=== PATIENT | female | born 1975 | race Caucasian/White ===

== ENCOUNTER 2018-01-31 23:06 | Emergency (ER) | payer BC, OTHER ==
--- NOTE | 2018-01-31 23:42 | EDM.PDOC ---
ED HPI GENERAL MEDICAL PROBLEM - General Chief Complaint: Lower Extremity Injury/Pain Stated Complaint: FEET SWOLLEN Time Seen by Provider: 01/31/18 23:42 Source of Information: Reports: Patient History Limitations: Reports: No Limitations - History of Present Illness INITIAL COMMENTS - FREE TEXT/NARRATIVE: HISTORY AND PHYSICAL: History of present illness: 42-year-old female presenting emergency department with chief complaint of one week of worsening bilateral lower leg edema and pain. Patient states that for the past year she has been noticing that she is getting swelling in her legs. This usually dissipates at night when she puts her legs up however over the past week the swelling is increased dramatically and is very painful. Pain and swelling is bilaterally. She did recently travel. She denies any hemoptysis or shortness of breath. She denies any orthopnea, paroxysmal nocturnal dyspnea, or shortness of breath with walking. She has been taking prophylactically with 5 mg which was prescribed to her in January for swelling in her legs. It does not seem to be helping at this point. She currently denies any chest pain, palpitations, shortness of breath, syncopal episodes, or focal neurologic deficits. On physical exam he is tender to palpation bilateral lower legs. There is +1 pedal edema up to the knees bilaterally. Review of systems: As per history of present illness and below otherwise all systems reviewed and negative. Past medical history: As per history of present illness and as reviewed below otherwise noncontributory. Surgical history: As per history of present illness and as reviewed below otherwise noncontributory. Social history: No reported history of drug or alcohol abuse. Family history: As per history of present illness and as reviewed below otherwise noncontributory. Physical exam: HEENT: Atraumatic, normocephalic, pupils reactive, negative for conjunctival pallor or scleral icterus, mucous membranes moist, throat clear, neck supple, nontender, trachea midline. Lungs: Clear to auscultation, breath sounds equal bilaterally, chest nontender. Heart: S1S2, regular, negative for clicks, rubs, or JVD. Abdomen: Soft, nondistended, nontender. Negative for masses or hepatosplenomegaly. Negative for costovertebral tenderness. Pelvis: Stable nontender. Genitourinary: Deferred. Rectal: Deferred. Extremities: Atraumatic, see above, tender palpation and +1 pedal edema up to the knees.. Neurovascular unremarkable. Neuro: Awake, alert, oriented. Cranial nerves II through XII unremarkable. Cerebellum unremarkable. Motor and sensory unremarkable throughout. Exam nonfocal. Diagnostics: CBC, CMP, troponin, d-dimer, UA, UC, venous Doppler, chest x-ray, CTA chest. Therapeutics: 40 mg Lasix IV 1, Impression: Venous insufficiency Bilateral lower leg edema Acute cystitis Plan: D-dimer was mildly positive so we did do a CTA which showed no evidence of a pulmonary embolism. Venous Doppler was also negative for blood clots. Urinalysis was positive for an acute cystitis. Her bilateral leg swelling is most likely secondary to venous insufficiency however patient does mention that she's had episodes of rapid heart rate, palpitations, which should be further investigated. I did give the patient a prescription for Lasix 40 mg by mouth daily for 3 days. She may need LAMONT hose compression stockings to help with her venous insufficiency which she most likely has. I also gave the patient ciprofloxacin for her acute cystitis. She is going to follow-up with her primary care provider and return the emergency department if she has any new or worsening symptoms. Definitive disposition and diagnosis as appropriate pending reevaluation and review of above. bilateral legs Pain Score (Numeric/FACES): 10 - Related Data Allergies Allergy/AdvReac Type Severity Reaction Status Date / Time tramadol Allergy Rash Verified 01/31/18 23:23 Home Meds: Home Meds Cyclobenzaprine [Flexeril] 5 mg PO TID PRN 02/01/18 [History] Indomethacin 50 mg PO TID PRN 02/01/18 [History] Spironolactone [Aldactone] 25 mg PO DAILY 02/01/18 [History] Vilazodone Hydrochloride [Viibryd] 20 mg PO QAM 02/01/18 [History] Past Medical History HEENT History: Reports: Other (See Below) Other HEENT History: wears glasses Cardiovascular History: Reports: Hypertension Other [employer] History: breast augmentation Psychiatric History: Reports: Depression - Infectious Disease History Infectious Disease History: Reports: Chicken Pox - Past Surgical History HEENT Surgical History: Reports: None Cardiovascular Surgical History: Reports: None Social & Family History - Family History Family Medical History: Noncontributory - Tobacco Use Smoking Status *Q: Current Every Day Smoker Years of Tobacco use: 25 Packs/Tins Daily: 0.5 - Caffeine Use Caffeine Use: Reports: Coffee - Recreational Drug Use Recreational Drug Use: No Review of Systems - Review of Systems Review Of Systems: ROS reveals no pertinent complaints other than HPI. ED EXAM, GENERAL - Physical Exam Exam: See Below Course - Vital Signs Last Recorded V/S: Last Vital Signs Temp 97.7 F 02/01/18 03:18 Pulse 84 02/01/18 03:18 Resp 18 02/01/18 03:18 BP 114/83 02/01/18 03:18 Pulse Ox 98 02/01/18 03:18 - Orders/Labs/Meds Orders: Active Orders 24 hr Category Date Time Status Cardiac Monitoring [RC] . DIRECTED Care 01/31/18 23:54 Active EKG Documentation Completion [RC] STAT Care 01/31/18 23:54 Active Oxygen Therapy [RC] ASDIRECTED Care 01/31/18 23:54 Active Pulse Oximetry [RC] ASDIRECTED Care 01/31/18 23:54 Active Ang Chest [CT] Stat Exams 02/01/18 01:26 Taken Chest 1V Frontal [CR] Stat Exams 01/31/18 23:54 Taken Venous Doppler Lwr Ext Bi [US] Stat Exams 02/01/18 23:56 Taken UA W/MICROSCOPIC [URIN] Stat Lab 02/01/18 00:21 Ordered Sodium Chloride 0.9% [Saline Flush] Med 01/31/18 23:54 Active 10 ml FLUSH ASDIRECTED PRN Sodium Chloride 0.9% [Saline Flush] Med 01/31/18 23:54 Active 2.5 ml FLUSH ASDIRECTED PRN Sodium Chloride 0.9% [Saline Flush] Med 01/31/18 23:54 Active 2.5 ml FLUSH ASDIRECTED PRN Saline Lock Insert [OM.PC] Stat Oth 01/31/18 23:54 Ordered Medication Orders Sodium Chloride (Saline Flush) 2.5 ml FLUSH ASDIRECTED PRN PRN Reason: Keep Vein Open Sodium Chloride (Saline Flush) 10 ml FLUSH ASDIRECTED PRN PRN Reason: Keep Vein Open Sodium Chloride (Saline Flush) 2.5 ml FLUSH ASDIRECTED PRN PRN Reason: Keep Vein Open Labs: Laboratory Tests 02/01/18 02/01/18 02/01/18 Range/Units 00:06 00:06 00:06 WBC 7.21 (4.0-11.0) K/uL RBC 4.11 L (4.30-5.90) M/uL Hgb 13.5 (12.0-16.0) g/dL Hct 39.2 (36.0-46.0) % MCV 95.4 (80.0-98.0) fL MCH 32.8 H (27.0-32.0) pg MCHC 34.4 (31.0-37.0) g/dL RDW Std Deviation 44.1 (28.0-62.0) fl RDW Coeff of Sheri 13 (11.0-15.0) % Plt Count 200 (150-400) K/uL MPV 9.60 (7.40-12.00) fL Neut % (Auto) 61.8 (48.0-80.0) % Lymph % (Auto) 31.1 (16.0-40.0) % [place] % (Auto) 5.0 (0.0-15.0) % Eos % (Auto) 1.8 (0.0-7.0) % Baso % (Auto) 0.3 (0.0-1.5) % Neut # (Auto) 4.5 (1.4-5.7) K/uL Lymph # (Auto) 2.2 (0.6-2.4) K/uL [place] # (Auto) 0.4 (0.0-0.8) K/uL Eos # (Auto) 0.1 (0.0-0.7) K/uL Baso # (Auto) 0.0 (0.0-0.1) K/uL Nucleated RBC % 0.0 /100WBC Nucleated RBCs # 0 K/uL INR 1.06 D-Dimer, Quantitative 0.66 H (0.0-0.52) mg/LFEU Sodium 140 (136-145) mmol/L Potassium 4.0 (3.5-5.1) mmol/L Chloride 104 (98-107) mmol/L Carbon Dioxide 30.9 (21.0-32.0) mmol/L BUN 19 H (7.0-18.0) mg/dL Creatinine 1.0 (0.6-1.0) mg/dL Est Cr Clr Drug Dosing 61.86 mL/min Estimated GFR (MDRD) > 60.0 ml/min Glucose 106 (74-106) mg/dL Calcium 8.6 (8.5-10.1) mg/dL Total Bilirubin 0.2 (0.2-1.0) mg/dL AST 44 H (15-37) IU/L ALT 75 H (14-63) IU/L Alkaline Phosphatase 56 (46-116) U/L Troponin I < 0.050 (0.000-0.056) ng/mL Total Protein 6.6 (6.4-8.2) g/dL Albumin 3.4 (3.4-5.0) g/dL Globulin 3.2 (2.0-3.5) g/dL Albumin/Globulin Ratio 1.1 L (1.3-2.8) Urine Color Urine Appearance Urine pH (5.0-8.0) Ur Specific Beaver (1.001-1.035) Urine Protein (NEGATIVE) mg/dL Urine Glucose (UA) (NEGATIVE) mg/dL Urine Ketones (NEGATIVE) mg/dL Urine Occult Blood (NEGATIVE) Urine Nitrite (NEGATIVE) Urine Bilirubin (NEGATIVE) Urine Urobilinogen (<2.0) EU/dL Ur Leukocyte Esterase (NEGATIVE) Urine RBC (0-2/HPF) Urine WBC (0-5/HPF) Ur Epithelial Cells (NONE-FEW) Urine Bacteria (NEGATIVE) 02/01/18 Range/Units 00:21 WBC (4.0-11.0) K/uL RBC (4.30-5.90) M/uL Hgb (12.0-16.0) g/dL Hct (36.0-46.0) % MCV (80.0-98.0) fL MCH (27.0-32.0) pg MCHC (31.0-37.0) g/dL RDW Std Deviation (28.0-62.0) fl RDW Coeff of Sheri (11.0-15.0) % Plt Count (150-400) K/uL MPV (7.40-12.00) fL Neut % (Auto) (48.0-80.0) % Lymph % (Auto) (16.0-40.0) % [place] % (Auto) (0.0-15.0) % Eos % (Auto) (0.0-7.0) % Baso % (Auto) (0.0-1.5) % Neut # (Auto) (1.4-5.7) K/uL Lymph # (Auto) (0.6-2.4) K/uL [place] # (Auto) (0.0-0.8) K/uL Eos # (Auto) (0.0-0.7) K/uL Baso # (Auto) (0.0-0.1) K/uL Nucleated RBC % /100WBC Nucleated RBCs # K/uL INR D-Dimer, Quantitative (0.0-0.52) mg/LFEU Sodium (136-145) mmol/L Potassium (3.5-5.1) mmol/L Chloride (98-107) mmol/L Carbon Dioxide (21.0-32.0) mmol/L BUN (7.0-18.0) mg/dL Creatinine (0.6-1.0) mg/dL Est Cr Clr Drug Dosing mL/min Estimated GFR (MDRD) ml/min Glucose (74-106) mg/dL Calcium (8.5-10.1) mg/dL Total Bilirubin (0.2-1.0) mg/dL AST (15-37) IU/L ALT (14-63) IU/L Alkaline Phosphatase (46-116) U/L Troponin I (0.000-0.056) ng/mL Total Protein (6.4-8.2) g/dL Albumin (3.4-5.0) g/dL Globulin (2.0-3.5) g/dL Albumin/Globulin Ratio (1.3-2.8) Urine Color YELLOW Urine Appearance CLOUDY Urine pH 6.0 (5.0-8.0) Ur Specific Beaver >= 1.030 (1.001-1.035) Urine Protein 30 (NEGATIVE) mg/dL Urine Glucose (UA) NEGATIVE (NEGATIVE) mg/dL Urine Ketones NEGATIVE (NEGATIVE) mg/dL Urine Occult Blood LARGE H (NEGATIVE) Urine Nitrite POSITIVE H (NEGATIVE) Urine Bilirubin NEGATIVE (NEGATIVE) Urine Urobilinogen 4.0 H (<2.0) EU/dL Ur Leukocyte Esterase SMALL (NEGATIVE) Urine RBC 55-60 (0-2/HPF) Urine WBC 40-55 (0-5/HPF) Ur Epithelial Cells FEW (NONE-FEW) Urine Bacteria 2+ H (NEGATIVE) Meds: Medications Generic Name Dose Route Start Last Admin Trade Name Freq PRN Reason Stop Dose Admin Sodium Chloride 2.5 ml 01/31/18 23:54 Saline Flush FLUSH ASDIRECTED PRN Keep Vein Open Sodium Chloride 10 ml 01/31/18 23:54 Saline Flush FLUSH ASDIRECTED PRN Keep Vein Open Sodium Chloride 2.5 ml 01/31/18 23:54 Saline Flush FLUSH ASDIRECTED PRN Keep Vein Open Discontinued Medications Generic Name Dose Route Start Last Admin Trade Name Freq PRN Reason Stop Dose Admin Furosemide 40 mg 02/01/18 01:26 02/01/18 01:36 Lasix IVPUSH 02/01/18 01:27 40 mg NOW ONE Administration Iopamidol 100 ml 02/01/18 02:12 02/01/18 02:18 Isovue-370 (76%) IVPUSH 02/01/18 02:13 100 ml ONETIME STA Administration Departure - Departure Time of Disposition: 03:43 Disposition: Home, Self-Care 01 Condition: Good Clinical Impression: Venous insufficiency of both lower extremities Acute cystitis Qualifiers: Hematuria presence: without hematuria Qualified Code(s): N30.00 - Acute cystitis without hematuria - Discharge Information Referrals: Echo Mathew NP [Primary Care Provider] - Forms: ED Department Discharge Additional Instructions: My general discharge The following information is given to patients seen in the emergency department who are being discharged to home. This information is to outline your options for follow-up care. We provide all patients seen in our emergency department with a follow-up referral. The need for follow-up, as well as the timing and circumstances, are variable depending upon the specifics of your emergency department visit. If you don't have a primary care physician on staff, we will provide you with a referral. We always advise you to contact your personal physician following an emergency department visit to inform them of the circumstance of the visit and for follow-up with them and/or the need for any referrals to a consulting specialist. The emergency department will also refer you to a specialist when appropriate. This referral assures that you have the opportunity for follow-up care with a specialist. All of these measure are taken in an effort to provide you with optimal care, which includes your follow-up. Under all circumstances we always encourage you to contact your private physician who remains a resource for coordinating your care. When calling for follow-up care, please make the office aware that this follow-up is from your recent emergency room visit. If for any reason you are refused follow-up, please contact the [facility] Emergency Department at and asked to speak to the emergency department charge nurse. [address] [address] Follow-up with your primary care provider as we discussed as soon as possible. Be sure to tell them that you were in the emergency department and they wish that you are followed up with as soon as possible. Would recommend possible cardiology consult for your palpitations that you had at nighttime. May consider compression stockings for suspected venous insufficiency. Take antibiotic as prescribed for your urinary tract infection. Take Lasix 40 mg by mouth daily for 3 days to help with swelling in your legs. Return emergency department if any new or worsening symptoms. - My Orders Last 24 Hours: My Active Orders 01/31/18 23:54 Cardiac Monitoring [RC] . DIRECTED EKG Documentation Completion [RC] STAT Oxygen Therapy [RC] ASDIRECTED Pulse Oximetry [RC] ASDIRECTED Chest 1V Frontal [CR] Stat Sodium Chloride 0.9% [Saline Flush] 10 ml FLUSH ASDIRECTED PRN Sodium Chloride 0.9% [Saline Flush] 2.5 ml FLUSH ASDIRECTED PRN Sodium Chloride 0.9% [Saline Flush] 2.5 ml FLUSH ASDIRECTED PRN Saline Lock Insert [OM.PC] Stat 02/01/18 00:21 UA W/MICROSCOPIC [URIN] Stat 02/01/18 01:26 Ang Chest [CT] Stat 02/01/18 23:56 Venous Doppler Lwr Ext Bi [US] Stat - Assessment/Plan Last 24 Hours: My Active Orders 01/31/18 23:54 Cardiac Monitoring [RC] . DIRECTED EKG Documentation Completion [RC] STAT Oxygen Therapy [RC] ASDIRECTED Pulse Oximetry [RC] ASDIRECTED Chest 1V Frontal [CR] Stat Sodium Chloride 0.9% [Saline Flush] 10 ml FLUSH ASDIRECTED PRN Sodium Chloride 0.9% [Saline Flush] 2.5 ml FLUSH ASDIRECTED PRN Sodium Chloride 0.9% [Saline Flush] 2.5 ml FLUSH ASDIRECTED PRN Saline Lock Insert [OM.PC] Stat 02/01/18 00:21 UA W/MICROSCOPIC [URIN] Stat 02/01/18 01:26 Ang Chest [CT] Stat 02/01/18 23:56 Venous Doppler Lwr Ext Bi [US] Stat
[2018-01-31] MEDS ORDERED: Sodium Chloride 0.9% 2.5 ML Syringe FLUSH PRN ×2 (23:54)
[2018-01-31] MEDS ORDERED: Sodium Chloride 0.9% 10 ML Syringe FLUSH PRN (23:54)
[2018-02-01 00:49] LABS: CHLORIDE,CL 104 mmol/L (98-107); SODIUM,NA 140 mmol/L (136-145)
[2018-02-01] MEDS ORDERED: Furosemide 40 MG/4 ML VIAL IVPUSH ONE (01:26)
[2018-02-01] MEDS ORDERED: Iopamidol 755 Mg/ML 100 ML Bottle IVPUSH STA (02:12)
--- NOTE | 2018-02-03 09:40 | CR ---
EXAM DATE: 01/31/18 PATIENT'S AGE: 42 Patient: [facility] Facility: [place], [place] Site . Site : 1975 Study: XRay Chest [id number]/21/2018 12:23:17 AM Ordering Physician: Fabio Weller Final Report: INDICATION: Shortness of breath, patient states bilateral lower leg swelling TECHNIQUE: Chest radiograph 1 view COMPARISON: None FINDINGS: Mediastinum: The mediastinum is normal in appearance. The heart silhouette is normal in size and morphology. Lungs: Both lungs are unremarkable in appearance. No sign of pleural effusion seen. No pneumothorax is identified. Bones and soft tissue: Unremarkable for age. IMPRESSION: 1. No acute cardiopulmonary disease is seen. Dictated by: Solis Camacho MD @ 02/01/2018 00:28:19 (Electronic Signature) Report Signed by Proxy. [facility]ENTERShannan
--- NOTE | 2018-02-03 09:46 | CT ---
EXAM DATE: 01/31/18 PATIENT'S AGE: 42 Patient: [facility] Facility: [place], [place] Site . Site : 1975 Study: CT Chest Angio [id number]/[id number]/2018 2:22:18 AM Ordering Physician: Fabio Weller Final Report: HISTORY: Chest pain, shortness of breath. Bilateral lower extremity swelling. Elevated D- dimer. TECHNIQUE: CT chest with IV contrast, pulmonary embolism protocol. COMPARISON: None. FINDINGS: Pulmonary arteries: No pulmonary embolism. Main pulmonary artery is normal caliber. Lungs: Central airways are patent. No consolidation. Small subpleural blebs in the lung apices. Few small ground-glass opacities in the left upper lobe and perihilar right lower lobe. No focal consolidation. No pleural effusion or pneumothorax. Mediastinum: Thoracic aorta is normal caliber. No pericardial effusion. Ill- defined fatty interspersed tissue in the anterior mediastinum compatible with residual thymic tissue. Lymph nodes: No enlarged thoracic lymph nodes. Musculoskeletal and chest wall: Bilateral breast implants. Mild degenerative changes of the thoracic spine. Upper abdomen: Unremarkable. IMPRESSION: 1. No pulmonary embolism. 2. Few scattered ground-glass opacities in both lungs are likely infectious or inflammatory. Please note that all CT scans at this facility use dose modulation, iterative reconstruction, and/or weight-based dosing when appropriate to reduce radiation dose to as low as reasonably achievable. Dictated by Dayron Perea MD @ Feb 01 2018 3:03AM (Electronic Signature) Report Signed by Proxy. [facility]Shannan
--- NOTE | 2018-02-03 15:28 | US ---
EXAM DATE: 01/31/18 PATIENT'S AGE: 42 Patient: [facility] Facility: [facility], [place], [place] : 1975 Study: US Extremity Bilateral [id number]/[id number] 1:02:23 AM Ordering Physician: Fabio Weller Final Report: INDICATION: leg pain TECHNIQUE: Bilateral lower extremity venous duplex ultrasound was performed using francis-scale ultrasound with and without compression and augmentation. Color Doppler and spectral Doppler exam of the lower extremity veins were obtained. COMPARISON: None FINDINGS: Deep veins: The bilateral common femoral, deep femoral, superficial femoral, popliteal, and visualized calf veins are fully compressible and normal response to mechanical augmentation. The Duplex Doppler waveforms are normal in appearance. Superficial veins: The visualized greater saphenous and superficial veins of the leg and calf are unremarkable. Soft tissues: No masses or cysts evident. No adenopathy is seen. IMPRESSION: 1. No sonographic evidence of deep venous thrombosis seen in either lower extremities. Dictated by: Solis Camacho MD @ 02/01/2018 01:08:26 Signed by: Solis Camacho MD @ 02/01/2018 1:08:26 AM (Electronic Signature) (Electronic Signature) Report Signed by Proxy. [facility]
== END 2018-02-01 04:00 | disposition home or self-care (01) ==
LOC: MW.ED 23:06
DX: I87.2 Venous insufficiency (chronic) (peripheral) (principal); N30.00 Acute cystitis without hematuria; R60.9 Edema, unspecified; I10 Essential (primary) hypertension; F17.210 Nicotine dependence, cigarettes, uncomplicated; Z88.6 Allergy status to analgesic agent; Z79.899 Other long term (current) drug therapy
CPT/HCPCS: 36415; 71045; 71275; 80053; 81001; 84484; 85025; 85379; 85610; 93005; 93970; 96374; 99284; J1940; Q9967

== ENCOUNTER 2019-06-05 18:28 | Emergency (ER) | payer OTHER ==
[2019-06-05] MEDS ORDERED: Sodium Chloride 0.9% 2.5 ML Syringe FLUSH PRN (18:30)
[2019-06-05] MEDS ORDERED: Sodium Chloride 0.9% 10 ML Syringe FLUSH PRN (18:30)
--- NOTE | 2019-06-05 18:48 | EDM.PDOC ---
ED HPI GENERAL MEDICAL PROBLEM - General Chief Complaint: Chest Pain Stated Complaint: CHEST PAIN Time Seen by Provider: 06/05/19 18:41 Source of Information: Reports: Patient History Limitations: Reports: No Limitations - History of Present Illness INITIAL COMMENTS - FREE TEXT/NARRATIVE: HISTORY AND PHYSICAL: History of present illness: Patient is a 44-year-old female presents to the ED with complaint of palpitations and chest pain. She states for the past week she gets a flipping sensation in her chest and feels short of breath when this occurs. She reports chest pain on and off today. She denies pain or other symptoms at this time. She denies fevers, chills, cough, hemoptysis. She denies significant past medical or surgical history. She is a former smoker, smoked 1/2 ppd x 30+ years. Review of systems: As per history of present illness and below otherwise all systems reviewed and negative. Past medical history: As per history of present illness and as reviewed below otherwise noncontributory. Surgical history: As per history of present illness and as reviewed below otherwise noncontributory. Social history: No reported history of drug or alcohol abuse. Family history: As per history of present illness and as reviewed below otherwise noncontributory. Physical exam: General: Patient sitting comfortably in no acute distress and nontoxic appearing HEENT: Atraumatic, normocephalic, pupils reactive, negative for conjunctival pallor or scleral icterus, mucous membranes moist, throat clear, neck supple, nontender, trachea midline. No meningeal signs. Lungs: Clear to auscultation, breath sounds equal bilaterally, chest nontender. Heart: S1S2, regular, negative for clicks, rubs, or overt murmur. Abdomen: Soft, nondistended, nontender. Negative for masses or hepatosplenomegaly. Negative for costovertebral tenderness. No rigidity, rebound , guarding. Pelvis: Stable nontender. Genitourinary: Deferred. Rectal: Deferred. Extremities: Atraumatic, negative for cords or calf pain. Neurovascular unremarkable. Neuro: Awake, alert, oriented. Cranial nerves II through XII unremarkable. Cerebellum unremarkable. Motor and sensory unremarkable throughout. Exam nonfocal. Notes: Diagnostics: CBC, CMP, Troponin, EKG, CXR Therapeutics: 1L NS IV Prescriptions: Impression: Palpitations, chest pain Plan: Patient offered admission for observation for chest pain r/o ACS. She declined at this time and understands my concerns and risks of this. Zio patch was placed today and patient informed to follow with cardiology. Definitive disposition and diagnosis as appropriate pending reevaluation and review of above. - Related Data Allergies Allergy/AdvReac Type Severity Reaction Status Date / Time tramadol Allergy Rash Verified 06/05/19 18:31 Home Meds: Home Meds . [No Known Home Meds] 06/05/19 [History] Past Medical History HEENT History: Reports: Other (See Below) Other HEENT History: wears glasses Cardiovascular History: Reports: Hypertension Other [employer] History: breast augmentation Psychiatric History: Reports: Depression - Infectious Disease History Infectious Disease History: Reports: Chicken Pox - Past Surgical History HEENT Surgical History: Reports: None Cardiovascular Surgical History: Reports: None Social & Family History - Family History Family Medical History: Noncontributory - Tobacco Use Smoking Status *Q: Never Smoker - Caffeine Use Caffeine Use: Reports: None - Recreational Drug Use Recreational Drug Use: No ED ROS GENERAL - Review of Systems Review Of Systems: Comprehensive ROS is negative, except as noted in HPI. ED EXAM, GENERAL - Physical Exam Exam: See Below (see dictation) Course - Vital Signs Last Recorded V/S: Last Vital Signs Temp 97.1 F 06/05/19 20:17 Pulse 88 06/05/19 20:17 Resp 16 06/05/19 20:17 BP 105/70 06/05/19 20:17 Pulse Ox 99 06/05/19 20:17 - Orders/Labs/Meds Orders: Active Orders 24 hr Category Date Time Status Cardiac Monitoring [RC] . DIRECTED Care 06/05/19 18:30 Active EKG Documentation Completion [RC] STAT Care 06/05/19 18:30 Active Saline Lock Insert [OM.PC] Stat Oth 06/05/19 18:30 Ordered Labs: Laboratory Tests 06/05/19 06/05/19 06/05/19 Range/Units 19:00 19:00 19:00 WBC 10.79 (4.0-11.0) K/uL RBC 4.57 (4.30-5.90) M/uL Hgb 15.1 (12.0-16.0) g/dL Hct 43.2 (36.0-46.0) % MCV 94.5 (80.0-98.0) fL MCH 33.0 H (27.0-32.0) pg MCHC 35.0 (31.0-37.0) g/dL RDW Std Deviation 44.2 (28.0-62.0) fl RDW Coeff of Sheri 13 (11.0-15.0) % Plt Count 261 (150-400) K/uL MPV 9.50 (7.40-12.00) fL Neut % (Auto) 67.5 (48.0-80.0) % Lymph % (Auto) 26.9 (16.0-40.0) % Garrard % (Auto) 4.4 (0.0-15.0) % Eos % (Auto) 1.1 (0.0-7.0) % Baso % (Auto) 0.1 (0.0-1.5) % Neut # (Auto) 7.3 H (1.4-5.7) K/uL Lymph # (Auto) 2.9 H (0.6-2.4) K/uL Garrard # (Auto) 0.5 (0.0-0.8) K/uL Eos # (Auto) 0.1 (0.0-0.7) K/uL Baso # (Auto) 0.0 (0.0-0.1) K/uL Nucleated RBC % 0.0 /100WBC Nucleated RBCs # 0 K/uL INR 1.03 Sodium 140 (136-145) mmol/L Potassium 3.6 (3.5-5.1) mmol/L Chloride 103 (98-107) mmol/L Carbon Dioxide 25.4 (21.0-32.0) mmol/L BUN 12 (7.0-18.0) mg/dL Creatinine 0.9 (0.6-1.0) mg/dL Est Cr Clr Drug Dosing 67.36 mL/min Estimated GFR (MDRD) > 60.0 ml/min Glucose 99 (74-106) mg/dL Calcium 8.7 (8.5-10.1) mg/dL Total Bilirubin 0.3 (0.2-1.0) mg/dL AST 12 L (15-37) IU/L ALT 42 (14-63) IU/L Alkaline Phosphatase 52 (46-116) U/L Troponin I < 0.050 (0.000-0.056) ng/mL Total Protein 7.6 (6.4-8.2) g/dL Albumin 3.8 (3.4-5.0) g/dL Globulin 3.8 (2.6-4.0) g/dL Albumin/Globulin Ratio 1.0 (0.9-1.6) TSH 3rd Generation (0.36-3.74) uIU/mL 06/05/19 Range/Units 19:00 WBC (4.0-11.0) K/uL RBC (4.30-5.90) M/uL Hgb (12.0-16.0) g/dL Hct (36.0-46.0) % MCV (80.0-98.0) fL MCH (27.0-32.0) pg MCHC (31.0-37.0) g/dL RDW Std Deviation (28.0-62.0) fl RDW Coeff of Sheri (11.0-15.0) % Plt Count (150-400) K/uL MPV (7.40-12.00) fL Neut % (Auto) (48.0-80.0) % Lymph % (Auto) (16.0-40.0) % Garrard % (Auto) (0.0-15.0) % Eos % (Auto) (0.0-7.0) % Baso % (Auto) (0.0-1.5) % Neut # (Auto) (1.4-5.7) K/uL Lymph # (Auto) (0.6-2.4) K/uL Garrard # (Auto) (0.0-0.8) K/uL Eos # (Auto) (0.0-0.7) K/uL Baso # (Auto) (0.0-0.1) K/uL Nucleated RBC % /100WBC Nucleated RBCs # K/uL INR Sodium (136-145) mmol/L Potassium (3.5-5.1) mmol/L Chloride (98-107) mmol/L Carbon Dioxide (21.0-32.0) mmol/L BUN (7.0-18.0) mg/dL Creatinine (0.6-1.0) mg/dL Est Cr Clr Drug Dosing mL/min Estimated GFR (MDRD) ml/min Glucose (74-106) mg/dL Calcium (8.5-10.1) mg/dL Total Bilirubin (0.2-1.0) mg/dL AST (15-37) IU/L ALT (14-63) IU/L Alkaline Phosphatase (46-116) U/L Troponin I (0.000-0.056) ng/mL Total Protein (6.4-8.2) g/dL Albumin (3.4-5.0) g/dL Globulin (2.6-4.0) g/dL Albumin/Globulin Ratio (0.9-1.6) TSH 3rd Generation 1.89 (0.36-3.74) uIU/mL Meds: Medications Discontinued Medications Generic Name Dose Route Start Last Admin Trade Name Freq PRN Reason Stop Dose Admin Sodium Chloride 1,000 mls @ 999 mls/hr 06/05/19 18:52 06/05/19 19:23 Normal Saline IV 06/05/19 19:52 999 mls/hr STAT ONE Administration Sodium Chloride 10 ml 06/05/19 18:30 06/05/19 18:36 Saline Flush FLUSH 10 ml ASDIRECTED PRN Administration Keep Vein Open Sodium Chloride 2.5 ml 06/05/19 18:30 06/05/19 18:37 Saline Flush FLUSH 2.5 ml ASDIRECTED PRN Administration Keep Vein Open Departure - Departure Time of Disposition: 09:59 Disposition: Home, Self-Care 01 Condition: Good Clinical Impression: Palpitations, Chest pain Instructions: Nonspecific Chest Pain, [id number], Palpitations, [id number] Referrals: [facility] [Primary Care Provider] - Les Ortiz MD [Physician] - 2 Weeks (palpitations, zio patch placed in ED ) Forms: ED Department Discharge Additional Instructions: The following information is given to patients seen in the emergency department who are being discharged to home. This information is to outline your options for follow-up care. We provide all patients seen in our emergency department with a follow-up referral. The need for follow-up, as well as the timing and circumstances, are variable depending upon the specifics of your emergency department visit. If you don't have a primary care physician on staff, we will provide you with a referral. We always advise you to contact your personal physician following an emergency department visit to inform them of the circumstance of the visit and for follow-up with them and/or the need for any referrals to a consulting specialist. The emergency department will also refer you to a specialist when appropriate. This referral assures that you have the opportunity for follow-up care with a specialist. All of these measure are taken in an effort to provide you with optimal care, which includes your follow-up. Under all circumstances we always encourage you to contact your private physician who remains a resource for coordinating your care. When calling for follow-up care, please make the office aware that this follow-up is from your recent emergency room visit. If for any reason you are refused follow-up, please contact the [facility] Emergency Department at and asked to speak to the emergency department charge nurse. [facility] [address] [place], [place] [id number] [place] [address] Follow up with cardiology as instructed Return to ED as needed as discussed - My Orders Last 24 Hours: My Active Orders 06/05/19 18:30 Cardiac Monitoring [RC] . DIRECTED EKG Documentation Completion [RC] STAT Saline Lock Insert [OM.PC] Stat - Assessment/Plan Last 24 Hours: My Active Orders 06/05/19 18:30 Cardiac Monitoring [RC] . DIRECTED EKG Documentation Completion [RC] STAT Saline Lock Insert [OM.PC] Stat
[2019-06-05] MEDS ORDERED: Sodium Chloride 0.9% 1,000 ML IV ONE (18:52)
--- NOTE | 2019-06-05 19:20 | CR ---
INDICATION: chest pain, sob TECHNIQUE: Chest 1 view. COMPARISON: 02/01/18 FINDINGS: Cardiovascular and mediastinum: Heart size and vasculature are normal in caliber and appearance. Mediastinum is within normal limits. Lungs and pleural space: Lungs are clear. No sign of infiltrate or mass. No sign of pleural effusion. No pneumothorax. Bones and soft tissues: No significant findings. IMPRESSION: Unremarkable chest. Dictated by: Segundo Martin MD @ 06/05/2019 19:20:10 (Electronically Signed)
[2019-06-05 19:33] LABS: BLOOD UREA NITROGEN,BUN 12 mg/dL (7.0-18.0); CARBON DIOXIDE,CO2 25.4 mmol/L (21.0-32.0); CHLORIDE,CL 103 mmol/L (98-107); GLUCOSE RANDOM 99 mg/dL (74-106); POTASSIUM,K 3.6 mmol/L (3.5-5.1); SODIUM,NA 140 mmol/L (136-145)
== END 2019-06-05 20:25 | disposition home or self-care (01) ==
LOC: MW.ED 18:28
DX: R00.2 Palpitations (principal); R07.9 Chest pain, unspecified; I10 Essential (primary) hypertension; Z88.6 Allergy status to analgesic agent
CPT/HCPCS: 36415; 71045; 80053; 84443; 84484; 85025; 85610; 93005; 99285; J7040